=== PATIENT | female | born 1995 | race Two or more races ===

== ENCOUNTER → 2025-01-04 | Emergency (ER) | payer OTHER ==
[~2025-01-04] VITALS: Ht 162.6 cm; Wt 64.9 kg
[~2025-01-04] MED LIST: PRENATA CHEWAB1 EACH
[2025-01-04 20:57] LABS: HEMATOCRIT 38.2 % (36.0-45.00); HEMOGLOBIN 13.4 g/dL (12.0-15.00); MEAN CELL VOLUME 92.1 fL (80.00-100.00); MEAN CORPUSCULAR HEMOGLOBIN 32.4 pg (27.00-32.0); MEAN CORPUSCULAR HGB CONC 35.2 g/dl (32.0-36.0); PLATELET COUNT 239 K/uL (150-450); RED BLOOD COUNT 4.14 M/uL (4.00-6.00)
[2025-01-04 21:25] LABS: PH,URINE 6.5 (5.0-8.0); URINE APPEARANCE Clear; URINE BILIRRUBIN Negative (NEGATIVE); URINE BLOOD Large; URINE COLOR Yellow; URINE GLUCOSE Negative (NEGATIVE); URINE KETONE Negative (NEGATIVE); URINE LEUKOCYTE Trace; URINE NITRATE Negative; URINE PROTEIN Negative (NEGATIVE); URINE UROBILINOGEN 0.2 E.U./dl
[2025-01-04 21:29] LABS: URINE BACTERIA 194.4 uL (0.0-1933); URINE EPITHELIAL CELLS 7.7 uL (0.0-38.8); URINE RBC 6.1 uL (0.0-20.8); URINE WBC 15.3 uL (0.0-23.2)
== END | disposition home or self-care (01) ==
LOC: ER 19:54
PROVIDERS: General Practice
DX: O20.9 Hemorrhage in early pregnancy, unspecified (principal); Z3A.01 Less than 8 weeks gestation of pregnancy

== ENCOUNTER 2025-01-26 22:10 | Emergency (ER) | payer OTHER ==
[~2025-01-26] VITALS: Ht 162.6 cm; Wt 64.4 kg
[2025-01-27 00:29] LABS: HEMATOCRIT 35.7 % (36.0-45.00); HEMOGLOBIN 12.7 g/dL (12.0-15.00); MEAN CELL VOLUME 92.3 fL (80.00-100.00); MEAN CORPUSCULAR HEMOGLOBIN 32.9 pg (27.00-32.0); MEAN CORPUSCULAR HGB CONC 35.6 g/dl (32.0-36.0); PLATELET COUNT 233 K/uL (150-450); RED BLOOD COUNT 3.87 M/uL (4.00-6.00)
== END 2025-01-27 03:53 ==
LOC: ER 22:11
PROVIDERS: General Practice
DX: O20.9 Hemorrhage in early pregnancy, unspecified (principal); O43.891 Other placental disorders, first trimester; Z3A.11 11 weeks gestation of pregnancy

== ENCOUNTER 2025-07-05 11:50 | Outpatient (CLI) | payer OTHER | END 2025-07-05 11:57 | disposition home or self-care (01) | LOC: SONOGRAMA 11:50 | PROVIDERS: ATTEND Obstetrics & Gynecology | DX: N60.11 Diffuse cystic mastopathy of right breast (principal) ==

== ENCOUNTER 2025-08-02 14:07 | Outpatient (CLI) | payer OTHER | END 2025-08-02 15:35 | disposition home or self-care (01) | LOC: NST 14:07 | PROVIDERS: ATTEND Obstetrics & Gynecology | DX: Z34.83 Encounter for supervision of other normal pregnancy, third trimester (principal) ==

== ENCOUNTER → 2025-08-06 | Outpatient (CLI) | payer OTHER | END | disposition home or self-care (01) | LOC: NST 13:53 | PROVIDERS: ATTEND Obstetrics & Gynecology | DX: Z34.83 Encounter for supervision of other normal pregnancy, third trimester (principal) ==

== ENCOUNTER 2025-08-10 16:32 | Inpatient (IN) | payer OTHER ==
[~2025-08-10] VITALS: Ht 162.6 cm; Wt 77.6 kg
[2025-08-10 17:03] VITALS: BP 124/81; O2SAT 99
[2025-08-10] MEDS ORDERED: PEPCID AC20 MG PO (17:20)
[2025-08-10] MEDS ORDERED: RINGERS SOLUTION,LACTATED 1,000 ML IV SCH (17:30)
[2025-08-10 18:31] LABS: BASO % 0.1 % (0.1-1.2); EOS # 0.04 (0.04-0.54); EOS % 0.3 % (0.7-7.0); LYMPH # 1.57 (1.18-3.74); LYMPH % 11.6 % (19.3-53.1); MEAN PLATELET VOLUME 10.60 fl (9.4-12.4); MONO # 0.78 (0.24-0.82); MONO % 5.8 % (4.7-12.5); NEUT # 11.05 (1.56-6.13); NEUT % 81.5 % (34.0-71.1); RED CELL DISTRIBUTION WIDTH 12.6 % (11.6-14.4)
[2025-08-10 18:34] LABS: URINE APPEARANCE Clear; URINE BILIRRUBIN Negative (NEGATIVE); URINE BLOOD Negative; URINE COLOR Yellow; URINE GLUCOSE Negative (NEGATIVE); URINE KETONE Negative (NEGATIVE); URINE LEUKOCYTE Small; URINE NITRATE Negative; URINE PROTEIN Negative (NEGATIVE); URINE UROBILINOGEN 0.2 E.U./dl
[2025-08-10 18:37] LABS: URINE BACTERIA 680.2 uL (0.0-1933); URINE EPITHELIAL CELLS 28.2 uL (0.0-38.8); URINE RBC 4.9 uL (0.0-20.8); URINE WBC 43.6 uL (0.0-23.2)
[2025-08-10 18:38] LABS: URINE CAST 0.00 uL (0.0-1.40)
[2025-08-10 18:59] LABS: INR < 0.93
[2025-08-10 19:03] LABS: ALT/SGPT 16.0 U/L (12-78); AST/SGOT 16.0 U/L (15-37); BILIRUBIN TOTAL 0.29 mg/dL (0.3-1.2); BUN CREA RATIO 18.0 (7.0-25.0); CREATININE SERUM 0.56 mg/dL (0.55-1.02); GFR 128.9; GLOBULINA 3.5 G/DL (2.4-3.5); GLUCOSE FASTING 73.0 mg/dL (65-100); OSMOLALITY SERUM 277.0 MOSM/KG (275-295)
[2025-08-10 21:10] VITALS: BP 128/76; O2SAT 99
[2025-08-10] MEDS ORDERED: FAMOTIDINE/PF 20 MG/2 ML VIAL IV PUSH SCH (22:29)
[2025-08-10] MEDS ORDERED: MORPHINE SULFATE 4 MG/ML CARTRIDGE IV PRN (22:30)
[2025-08-10 23:24] VITALS: BP 119/82
[2025-08-11 03:42] VITALS: BP 123/72
[2025-08-11 07:40] VITALS: BP 135/78
[2025-08-11] MEDS ORDERED: OXYTOCIN 500 ML IV ONE (08:45)
[2025-08-11] MEDS ORDERED: TERBUTALINE SULFATE 1 MG/ML AMPUL ONE (09:16)
[2025-08-11] MEDS ORDERED: TERBUTALINE SULFATE 1 MG/ML AMPUL SUBCUTANEO ONE (09:45)
[2025-08-11 11:15] VITALS: BP 136/70
[2025-08-11] MEDS ORDERED: ERYTHROMYCIN BASE OPHT 1GM EACH TUBE OP ONE (12:04)
[2025-08-11] MEDS ORDERED: OXYTOCIN 10 UNITS/ML VIAL ONE (12:04)
[2025-08-11] MEDS ORDERED: OXYTOCIN 1,000 ML IV SCH (14:00)
[2025-08-11] MEDS ORDERED: MORPHINE SULFATE 4 MG/ML VIAL IV PRN (14:00)
[2025-08-11 15:29] VITALS: BP 118/79
[2025-08-12 01:36] VITALS: BP 118/74
[2025-08-12 03:00] VITALS: BP 103/65
[2025-08-12 08:00] VITALS: BP 130/88
[2025-08-12 09:59] LABS: BASO % 0.2 % (0.1-1.2); EOS # 0.03 (0.04-0.54); EOS % 0.2 % (0.7-7.0); LYMPH # 1.21 (1.18-3.74); LYMPH % 8.6 % (19.3-53.1); MEAN PLATELET VOLUME 10.30 fl (9.4-12.4); MONO # 0.72 (0.24-0.82); MONO % 5.1 % (4.7-12.5); NEUT # 12.05 (1.56-6.13); NEUT % 85.3 % (34.0-71.1); RED CELL DISTRIBUTION WIDTH 12.8 % (11.6-14.4)
[2025-08-12 16:06] VITALS: BP 123/78
[2025-08-13] VITALS: BP 133/89
[2025-08-13] MEDS ORDERED: OxyCODONE HCL 5 MG TABLET (ROXICODONE) PO PRN (06:00)
[2025-08-13 08:00] VITALS: BP 131/79
== END 2025-08-13 14:13 | disposition home or self-care (01) | DRG 788 ==
LOC: LDR 16:32 → O/R 08-11 13:10 → OB/GYN 08-11 15:31
PROVIDERS: Obstetrics & Gynecology; ADMIT Obstetrics & Gynecology; ATTEND Obstetrics & Gynecology
PROC: 4A1HXCZ Monitoring of Products of Conception, Cardiac Rate, External Approach (ICD-10-PCS; 2025-08-10)
PROC: 10D00Z1 Extraction of Products of Conception, Low, Open Approach (ICD-10-PCS; principal; 2025-08-11 15:45)
DX: O82 Encounter for cesarean delivery without indication (principal); O62.0 Primary inadequate contractions; Z3A.38 38 weeks gestation of pregnancy; Z37.0 Single live birth